=== PATIENT | female | born 1990 | race African-American/Black ===

== ENCOUNTER 2017-09-07 07:30 | Emergency (ER) | payer SELFPAY ==
[~2017-09-07] VITALS: Ht 165.1 cm; Wt 112.0 kg
[2017-09-07 09:49] VITALS: BP 134/68
== END 2017-09-07 12:42 | disposition left against medical advice (07) ==
LOC: ER 08:00
DX: R11.0 Nausea (principal); Z53.21 Procedure and treatment not carried out due to patient leaving prior to being seen by health care provider

== ENCOUNTER 2018-12-30 12:35 | Emergency (ER) | payer MEDICAID ==
[~2018-12-30] VITALS: Ht 165.1 cm; Wt 111.0 kg
[2018-12-30 12:41] VITALS: BP 144/88
== END 2018-12-30 15:52 | disposition left against medical advice (07) ==
LOC: ER 12:35
DX: M54.5 Low back pain (principal); Z53.21 Procedure and treatment not carried out due to patient leaving prior to being seen by health care provider

== ENCOUNTER 2018-12-31 05:39 | Emergency (ER) | payer MEDICAID ==
[~2018-12-31] VITALS: Ht 165.1 cm; Wt 116.0 kg
[2018-12-31] MEDS ORDERED: IBUPROFEN 800MG TABLET PO ONE (06:30)
[2018-12-31 07:12] LABS: COLOR URINE YELLOW (YELLOW); KETONES URINE TRACE (NEGATIVE); LEUKOCYTE ESTERASE URINE 1+ (NEGATIVE); NITRITE URINE NEGATIVE (NEGATIVE); OCCULT BLOOD URINE NEGATIVE (NEGATIVE); PROTEIN URINE NEGATIVE (NEGATIVE); SPECIFIC GRAVITY URINE 1.021 (1.005-1.030)
[2018-12-31 07:16] LABS: CLARITY URINE HAZY (CLEAR)
[2018-12-31 08:10] VITALS: BP 139/82
== END 2018-12-31 08:12 | disposition home or self-care (01) ==
LOC: ER 05:39
DX: N39.0 Urinary tract infection, site not specified (principal); M54.5 Low back pain; Z88.0 Allergy status to penicillin
CPT/HCPCS: 99283

== ENCOUNTER 2019-01-08 05:49 | Emergency (ER) | payer MEDICAID ==
[~2019-01-08] VITALS: Ht 165.1 cm; Wt 116.0 kg
[2019-01-08] MEDS ORDERED: KETOROLAC 30MG/ML VIAL IM STA (07:06)
[2019-01-08 07:23] LABS: CLARITY URINE CLEAR (CLEAR); COLOR URINE YELLOW (YELLOW); KETONES URINE NEGATIVE (NEGATIVE); LEUKOCYTE ESTERASE URINE NEGATIVE (NEGATIVE); NITRITE URINE NEGATIVE (NEGATIVE); OCCULT BLOOD URINE NEGATIVE (NEGATIVE); PROTEIN URINE NEGATIVE (NEGATIVE); SPECIFIC GRAVITY URINE 1.031 (1.005-1.030)
[2019-01-08 07:49] LABS: BASOPHILS % 0.8 % (0.0-2.0); EOSINOPHILS % 0.8 % (0.0-5.0); HEMATOCRIT. 36.8 % (36.0-48.0); HEMOGLOBIN. 11.8 g/dL (12.0-16.0); LYMPHOCYTES % 35.7 % (20.0-50.0); MEAN CORPUSCULAR HEMOGLOBIN 29.3 pg (28.0-32.0); MEAN PLATELET VOLUME 8.7 fl (7.4-10.4); MONOCYTES % 11.7 % (2.0-8.0); PLATELET 218 x1000/uL (130-400); RED BLOOD CELL COUNT 4.04 mill/uL (4.2-5.4); RED CELL DISTRIBUTION WIDTH 12.8 % (11.6-14.6)
[2019-01-08 07:52] LABS: CHLORIDE 108 mEq/L (98-107)
[2019-01-08 08:37] VITALS: BP 130/72
== END 2019-01-08 08:39 | disposition home or self-care (01) ==
LOC: ER 05:49
DX: M54.5 Low back pain (principal); Z87.440 Personal history of urinary (tract) infections
CPT/HCPCS: 36415; 80053; 81003; 85025; 96372; 99283; J1885; Z7610

== ENCOUNTER 2020-01-05 12:25 | Emergency (ER) | payer MEDICAID, OTHER ==
[~2020-01-05] VITALS: Ht 165.1 cm; Wt 108.0 kg
[2020-01-05] MEDS ORDERED: SODIUM CHLORIDE 0.9% 1,000 ML IV ONE (13:27)
[2020-01-05 13:59] LABS: BASOPHILS % 0.9 % (0.0-2.0); EOSINOPHILS % 0.7 % (0.0-5.0); HEMATOCRIT. 40.4 % (36.0-48.0); HEMOGLOBIN. 13.4 g/dL (12.0-16.0); LYMPHOCYTES % 35.7 % (20.0-50.0); MEAN CORPUSCULAR HEMOGLOBIN 29.9 pg (28.0-32.0); MEAN CORPUSCULAR VOLUME 89.9 fL (81.0-99.0); MEAN PLATELET VOLUME 9.3 fl (7.4-10.4); MONOCYTES % 10.1 % (2.0-8.0); NEUTROPHILS % 52.6 % (40.0-76.0); PLATELET 226 x1000/uL (130-400); RED BLOOD CELL COUNT 4.49 mill/uL (4.2-5.4); RED CELL DISTRIBUTION WIDTH 13.4 % (11.6-14.6)
[2020-01-05 14:00] LABS: CLARITY URINE CLEAR (CLEAR); COLOR URINE YELLOW (YELLOW); KETONES URINE NEGATIVE (NEGATIVE); LEUKOCYTE ESTERASE URINE TRACE (NEGATIVE); NITRITE URINE NEGATIVE (NEGATIVE); OCCULT BLOOD URINE NEGATIVE (NEGATIVE); PH URINE 6.5 (4.5-8.0); PROTEIN URINE NEGATIVE (NEGATIVE); SPECIFIC GRAVITY URINE 1.015 (1.005-1.030); UROBILINOGEN URINE 0.2 E.U./dL (0.2-1.0)
[2020-01-05 14:06] LABS: CHLORIDE 106 mEq/L (98-107)
[2020-01-05 14:07] LABS: HCG SCREEN NEGATIVE
[2020-01-05 14:08] LABS: INR 1.1; PROTHROMBIN TIME 11.9 sec (9.6-11.0)
[2020-01-05] MEDS: HYDROCODONE/ACETAMINOPHEN 5/325MG TABLET PO NR ×2 (14:59→15:56)
[2020-01-05 17:08] VITALS: BP 130/69
== END 2020-01-05 17:10 | disposition home or self-care (01) ==
LOC: ER 12:25
DX: R10.32 Left lower quadrant pain (principal); R19.7 Diarrhea, unspecified; R11.0 Nausea; N76.0 Acute vaginitis; N89.8 Other specified noninflammatory disorders of vagina; Z87.440 Personal history of urinary (tract) infections; Z88.0 Allergy status to penicillin; Z88.2 Allergy status to sulfonamides
CPT/HCPCS: 36415; 74177; 76830; 76856; 80053; 81003; 83690; 84703; 85025; 85610; 96360; 96361; 99285; J7030